=== PATIENT | male | born 1960 | race Caucasian/White ===

== ENCOUNTER 2022-12-29 05:54 | Emergency (ER) | payer MEDICARE, OTHER ==
[~2022-12-29] VITALS: Ht 180.3 cm; Wt 110.0 kg
[2022-12-29 05:56] VITALS: TEMP 98.1
[2022-12-29] MEDS ORDERED: SODIUM CHLORIDE 0.9% 1,000 ML IV ONE (06:30)
[2022-12-29 06:32] VITALS: BP 146/78; PULSE 95; RESP 18
== END 2022-12-29 06:47 | disposition left against medical advice (07) ==
LOC: EMS 05:54
DX: F10.20 Alcohol dependence, uncomplicated (principal); E77.9 Disorder of glycoprotein metabolism, unspecified; I10 Essential (primary) hypertension; Z88.5 Allergy status to narcotic agent
CPT/HCPCS: 99281; Z7502